=== PATIENT | male | born 1985 | race African-American/Black ===

== ENCOUNTER 2022-11-25 20:59 | Emergency (ER) | payer SELFPAY ==
--- NOTE | 2022-11-25 21:05 | PC.NURSE ---
PT NOT FOUND IN WAITING ROOM WHEN CALLED TO BE TRIAGED.
--- NOTE | 2022-11-25 21:15 | PC.NURSE ---
PT NOT FOUND IN WAITING ROOM WHEN CALLED TO BE TRIAGED.
== END 2022-11-26 01:08 | disposition left against medical advice (07) ==
DX: Z53.21 Procedure and treatment not carried out due to patient leaving prior to being seen by health care provider (principal)
CPT/HCPCS: 99199